=== PATIENT | female | born 1970 | race Caucasian/White ===

== ENCOUNTER 2017-06-19 12:04 | Inpatient (IN) ==
[2017-06-19] MEDS ORDERED: NICOTINE 21 MG/24 HR PATCH TRANSDERM PRN (12:08)
[2017-06-19] MEDS ORDERED: ACETAMINOPHEN 325 MG TABLET PO PRN (12:08)
[2017-06-19] MEDS ORDERED: DOCUSATE SODIUM 100 MG CAPSULE PO PRN (12:08)
[2017-06-19] MEDS ORDERED: ALBUTEROL/IPRATROPIUM 3 ML NEB RESP TX PRN (12:08)
[2017-06-19] MEDS ORDERED: BENZONATATE 100 MG CAPSULE PO PRN (12:12)
[2017-06-19 14:42] LABS: Basophils % 0.1 % (0.0-0.8); Hematocrit 42.7 VOL% (35.7-47.0); Hemoglobin 14.3 GM/DL (12.0-16.0); Immature Granulocytes % 0.3 %; Immature Granulocytes Absolute 0.02 #; Lymphocytes # 1.3 10*3/uL (1.4-4.0); Lymphocytes % 18.4 % (21.3-54.2); Mean Corpuscular HGB Conc 33.5 GM/DL (32-36); Mean Corpuscular Hemoglobin 30 PG (27-34); Mean Corpuscular Volume 88.6 FL (87-102); Mean Platelet Volume 8.7 FL (9.6-12.0); Monocytes # 0.1 10*3/uL (0.11-0.8); Monocytes % 1.1 % (1.7-12.7); Neutrophils # 5.6 10*3/uL (1.4-7.4); Neutrophils % 80.1 % (38.7-73.9); Platelet Count 316 T/CUMM (130-400); Red Blood Count 4.82 MC/CUMM (3.8-5.5); Red Cell Distribution Width 14.6 % (9.3-17.3)
[2017-06-19] MEDS: methylPREDNISolone SOD SUC 40 MG/1 ML VIAL IV SCH ×2 (14:56→23:37)
[2017-06-19] MEDS: ALBUTEROL/IPRATROPIUM 3 ML NEB RESP TX SCH ×2 (15:00→19:20)
[2017-06-19 15:02] LABS: Albumin 3.9 G/DL (3.4-5.0); Bilirubin,Total 0.7 MG/DL (0.2-1.0); Calcium 9.9 MG/DL (8.5-10.1); Free T4 (Free Thyroxine) 1.44 NG/DL (0.76-1.46); Osmolality,Calculated 280.7 MOS/KG (273-304); Potassium 4.2 MMOL/L (3.5-5.1); Total Protein 7.5 G/DL (6.4-8.3)
[2017-06-19 15:10] LABS: Magnesium 1.5 MG/DL (1.8-2.4); Thyroid Stimulating Hormone 1.09 uIU/ml (0.358-3.74)
[2017-06-19] MEDS ORDERED: DEXTROAMPHETAMINE PO PRN (15:26)
[2017-06-19] MEDS ORDERED: AMPHETAMINE PO PRN (15:26)
[2017-06-19] MEDS ORDERED: CETIRIZINE 10 MG TABLET PO PRN (15:26)
[2017-06-19] MEDS: LEVOFLOXACIN INJ 500 MG in PREMIX 1 EACH IV SCH (16:28)
[2017-06-19] MEDS: DORNASE ALFA 2.5 MG/2.5 ML VIAL RESP TX SCH (19:20)
[2017-06-19] MEDS: ALBUTEROL 0.4 MG/ML 30 ML/BOTTLE PO SCH ×2 (19:56→22:23)
[2017-06-19] MEDS ORDERED: BECLOMETHASONE 80 MCG/PUFF INHALER 8.7 GM INH SCH (21:00)
[2017-06-19] MEDS: PANTOPRAZOLE 40 MG TABLET PO SCH (22:15)
[2017-06-19] MEDS: MONTELUKAST 10 MG TABLET PO SCH (22:16)
[2017-06-20] MEDS: ALBUTEROL 0.4 MG/ML 30 ML/BOTTLE PO SCH ×3 (05:48→22:12)
[2017-06-20 06:51] LABS: Hematocrit 41.1 VOL% (35.7-47.0); Hemoglobin 13.8 GM/DL (12.0-16.0); Immature Granulocytes % 0.5 %; Immature Granulocytes Absolute 0.03 #; Lymphocytes # 1.3 10*3/uL (1.4-4.0); Lymphocytes % 22.9 % (21.3-54.2); Mean Corpuscular HGB Conc 33.6 GM/DL (32-36); Mean Corpuscular Hemoglobin 30 PG (27-34); Mean Platelet Volume 9.2 FL (9.6-12.0); Monocytes # 0.1 10*3/uL (0.11-0.8); Monocytes % 0.9 % (1.7-12.7); Neutrophils # 4.1 10*3/uL (1.4-7.4); Neutrophils % 75.7 % (38.7-73.9); Platelet Count 325 T/CUMM (130-400); Red Blood Count 4.67 MC/CUMM (3.8-5.5); Red Cell Distribution Width 14.7 % (9.3-17.3); White Blood Count 5.5 T/CUMM (4-12)
[2017-06-20] MEDS: ALBUTEROL/IPRATROPIUM 3 ML NEB RESP TX SCH ×4 (07:22→20:14)
[2017-06-20 07:25] LABS: Calcium 9.9 MG/DL (8.5-10.1); Osmolality,Calculated 284.7 MOS/KG (273-304); Potassium 4.2 MMOL/L (3.5-5.1)
[2017-06-20] MEDS: DORNASE ALFA 2.5 MG/2.5 ML VIAL RESP TX SCH ×2 (07:28→20:16)
[2017-06-20] MEDS: PANTOPRAZOLE 40 MG TABLET PO SCH ×2 (09:18→21:27)
[2017-06-20] MEDS: MONTELUKAST 10 MG TABLET PO SCH ×2 (09:18→21:27)
[2017-06-20 10:16] LABS: Apearance,Urine CLOUDY (Clear); Bacteria,Urine Occasional /HPF (Few); Bilirubin,Urine Negative (Negative); Blood, Urine Negative (Negative); Glucose,Urine (UA) 50 mg/dL (Negative); Ketones,Urine Negative (Negative); Mucus,Urine Occasional /LPF (Occasional); Nitrite,Urine Negative (Negative); Protein,Urine Negative; RBC,Urine 3 /HPF (0-4); Squamous Epithelial Cell,Urine Few /HPF (0-10); Urine Color Yellow (Yellow); Urine Specific Gravity 1.029 (1.001-1.035); Urine Urobilinogen < 2.0 EU/DL (0.2-1.0); WBC,Urine 3 /HPF (0-6)
[2017-06-20] MEDS: methylPREDNISolone SOD SUC 40 MG/1 ML VIAL IV SCH ×2 (12:30→23:58)
[2017-06-20] MEDS: MAGNESIUM CHLORIDE 64 MG TABLET PO SCH ×2 (12:35→21:27)
[2017-06-20] MEDS: LEVOFLOXACIN INJ 500 MG in PREMIX 1 EACH IV SCH (13:00)
[2017-06-20] MEDS: ALPRAZolam 0.5 MG TABLET PO PRN (23:58)
[2017-06-21] MEDS: ALBUTEROL 0.4 MG/ML 30 ML/BOTTLE PO SCH ×3 (05:50→23:52)
[2017-06-21 06:12] LABS: Basophils % 0.1 % (0.0-0.8); Hematocrit 40.8 VOL% (35.7-47.0); Hemoglobin 13.4 GM/DL (12.0-16.0); Immature Granulocytes % 0.7 %; Lymphocytes # 1.3 10*3/uL (1.4-4.0); Lymphocytes % 9.1 % (21.3-54.2); Mean Corpuscular HGB Conc 32.8 GM/DL (32-36); Mean Corpuscular Hemoglobin 29 PG (27-34); Mean Corpuscular Volume 88.3 FL (87-102); Monocytes # 0.3 10*3/uL (0.11-0.8); Monocytes % 1.9 % (1.7-12.7); Neutrophils # 12.4 10*3/uL (1.4-7.4); Neutrophils % 88.2 % (38.7-73.9); Platelet Count 328 T/CUMM (130-400); Red Blood Count 4.62 MC/CUMM (3.8-5.5); Red Cell Distribution Width 15.1 % (9.3-17.3)
[2017-06-21 06:34] LABS: Calcium 9.5 MG/DL (8.5-10.1); Osmolality,Calculated 286.3 MOS/KG (273-304); Potassium 4.4 MMOL/L (3.5-5.1)
[2017-06-21] MEDS: ALBUTEROL/IPRATROPIUM 3 ML NEB RESP TX SCH ×4 (07:15→20:15)
[2017-06-21] MEDS: DORNASE ALFA 2.5 MG/2.5 ML VIAL RESP TX SCH ×2 (07:15→20:15)
[2017-06-21] MEDS: MAGNESIUM CHLORIDE 64 MG TABLET PO SCH ×2 (09:39→20:17)
[2017-06-21] MEDS: NICOTINE 21 MG/24 HR PATCH TRANSDERM SCH (09:39)
[2017-06-21] MEDS: PANTOPRAZOLE 40 MG TABLET PO SCH ×2 (09:39→20:17)
[2017-06-21] MEDS: MONTELUKAST 10 MG TABLET PO SCH ×2 (09:39→20:17)
[2017-06-21] MEDS: methylPREDNISolone SOD SUC 40 MG/1 ML VIAL IV SCH ×2 (12:51→23:53)
[2017-06-21] MEDS: LEVOFLOXACIN INJ 500 MG in PREMIX 1 EACH IV SCH (14:06)
[2017-06-21 16:01] LABS: Procalcitonin, S 0.12 ng/mL (<=0.15)
[2017-06-21] MEDS: ALPRAZolam 0.5 MG TABLET PO PRN (22:58)
[2017-06-22] MEDS: ALBUTEROL 0.4 MG/ML 30 ML/BOTTLE PO SCH ×3 (06:10→22:12)
[2017-06-22 06:27] LABS: Basophils % 0.1 % (0.0-0.8); Hemoglobin 13.1 GM/DL (12.0-16.0); Immature Granulocytes % 1.3 %; Immature Granulocytes Absolute 0.12 #; Lymphocytes # 1.3 10*3/uL (1.4-4.0); Lymphocytes % 13.8 % (21.3-54.2); Mean Corpuscular HGB Conc 32.8 GM/DL (32-36); Mean Corpuscular Hemoglobin 29 PG (27-34); Mean Corpuscular Volume 89.3 FL (87-102); Mean Platelet Volume 8.9 FL (9.6-12.0); Monocytes # 0.2 10*3/uL (0.11-0.8); Monocytes % 2.6 % (1.7-12.7); Neutrophils # 7.5 10*3/uL (1.4-7.4); Neutrophils % 82.2 % (38.7-73.9); Platelet Count 303 T/CUMM (130-400); Red Blood Count 4.48 MC/CUMM (3.8-5.5); Red Cell Distribution Width 15.3 % (9.3-17.3); White Blood Count 9.1 T/CUMM (4-12)
[2017-06-22 07:01] LABS: Calcium 9.5 MG/DL (8.5-10.1); Osmolality,Calculated 280.5 MOS/KG (273-304); Potassium 4.6 MMOL/L (3.5-5.1)
[2017-06-22] MEDS: DORNASE ALFA 2.5 MG/2.5 ML VIAL RESP TX SCH ×2 (07:17→19:50)
[2017-06-22] MEDS: ALBUTEROL/IPRATROPIUM 3 ML NEB RESP TX SCH ×4 (07:21→19:50)
[2017-06-22] MEDS: PANTOPRAZOLE 40 MG TABLET PO SCH ×2 (08:55→22:13)
[2017-06-22] MEDS: MONTELUKAST 10 MG TABLET PO SCH ×2 (08:55→22:13)
[2017-06-22] MEDS: MAGNESIUM CHLORIDE 64 MG TABLET PO SCH ×2 (08:56→22:13)
[2017-06-22] MEDS: NICOTINE 21 MG/24 HR PATCH TRANSDERM SCH (08:56)
[2017-06-22] MEDS: methylPREDNISolone SOD SUC 40 MG/1 ML VIAL IV SCH ×2 (12:37→23:44)
[2017-06-22] MEDS: LEVOFLOXACIN INJ 500 MG in PREMIX 1 EACH IV SCH (14:39)
[2017-06-22] MEDS: ALPRAZolam 0.5 MG TABLET PO PRN (22:20)
[2017-06-23] MEDS: ALBUTEROL 0.4 MG/ML 30 ML/BOTTLE PO SCH (05:38)
[2017-06-23] MEDS: ALBUTEROL/IPRATROPIUM 3 ML NEB RESP TX SCH ×2 (07:29→11:08)
[2017-06-23] MEDS: DORNASE ALFA 2.5 MG/2.5 ML VIAL RESP TX SCH (07:37)
[2017-06-23] MEDS: MONTELUKAST 10 MG TABLET PO SCH (09:10)
[2017-06-23] MEDS: MAGNESIUM CHLORIDE 64 MG TABLET PO SCH (09:10)
[2017-06-23] MEDS: NICOTINE 21 MG/24 HR PATCH TRANSDERM SCH (09:10)
[2017-06-23] MEDS: PANTOPRAZOLE 40 MG TABLET PO SCH (09:10)
[2017-06-23 11:29] VITALS: BP 150/98
[2017-06-23] MEDS ORDERED: cefTAZidime 1,000 MG in SYRINGE 1 EACH IV SCH (14:00)
[2017-06-26] MEDS ORDERED: HUMIRA 40 MG SUBCUT SCH (09:00)
== END 2017-06-23 12:01 | disposition home or self-care (01) | DRG 202 ==
LOC: N.5E 12:50
PROVIDERS: ADMIT Internal Medicine Pulmonary Disease; ATTEND Internal Medicine Pulmonary Disease

== ENCOUNTER 2018-07-20 11:16 | Inpatient (IN) ==
[2018-07-20] MEDS ORDERED: ALBUTEROL/IPRATROPIUM 3 ML NEB RESP TX PRN (11:21)
[2018-07-20] MEDS ORDERED: INFLUENZA VIRUS VACCINE 0.5 ML SYRINGE IM ONE (14:09)
[2018-07-20] MEDS ORDERED: PNEUMOCOCCAL VACCINE (13 VALENT) 0.5 ML SYRINGE IM ONE (14:09)
[2018-07-20 14:56] LABS: Basophils % 0.2 % (0.0-0.8); Eosinophils % 0.3 % (0.00-10.9); Hematocrit 43.4 VOL% (35.7-47.0); Hemoglobin 13.5 GM/DL (12.0-16.0); Immature Granulocytes % 0.6 %; Immature Granulocytes Absolute 0.07 #; Lymphocytes % 8.7 % (21.3-54.2); Mean Corpuscular HGB Conc 31.1 GM/DL (32-36); Mean Corpuscular Hemoglobin 28 PG (27-34); Mean Platelet Volume 8.6 FL (9.6-12.0); Monocytes # 0.2 10*3/uL (0.11-0.8); Monocytes % 1.3 % (1.7-12.7); Neutrophils # 10.2 10*3/uL (1.4-7.4); Neutrophils % 88.9 % (38.7-73.9); Platelet Count 343 T/CUMM (130-400); Red Blood Count 4.77 MC/CUMM (3.8-5.5); Red Cell Distribution Width 15.6 % (9.3-17.3); White Blood Count 11.5 T/CUMM (4-12)
[2018-07-20 15:24] LABS: Alanine Aminotransferase 21 U/L (13-56); Albumin 3.6 G/DL (3.4-5.0); Alkaline Phosphatase 37 U/L (45-117); Aspartate Amino Transferase 11 U/L (0-37); Bilirubin,Total < 0.39 MG/DL (0.2-1.0); Blood Urea Nitrogen 13 MG/DL (7-18); Calcium 9.4 MG/DL (8.5-10.1); Glucose 153 MG/DL (74-106); Osmolality,Calculated 281.4 MOS/KG (273-304); Potassium 3.6 MMOL/L (3.5-5.1); Sodium 140 MMOL/L (136-145); Thyroid Stimulating Hormone 0.924 uIU/ml (0.358-3.74); Total Protein 7.4 G/DL (6.4-8.3)
[2018-07-20] MEDS: ALBUTEROL 0.4 MG/ML 30 ML/BOTTLE PO SCH (15:42)
[2018-07-20] MEDS: methylPREDNISolone SOD SUC 125 MG/2 ML VIAL IV SCH (15:42)
[2018-07-20] MEDS: cefTAZidime 1,000 MG in SYRINGE 1 EACH IV SCH (15:43)
[2018-07-20] MEDS: ALBUTEROL/IPRATROPIUM 3 ML NEB RESP TX SCH ×2 (16:48→19:48)
[2018-07-20 17:51] LABS: Apearance,Urine CLEAR (Clear); Bilirubin,Urine Negative (Negative); Blood, Urine Small mg/dL (Negative); Glucose,Urine (UA) Negative (Negative); Hyaline Casts,Urine 3 /LPF (0-3); Ketones,Urine Negative (Negative); Mucus,Urine Occasional /LPF (Occasional); Nitrite,Urine Negative (Negative); Protein,Urine Negative; RBC,Urine 4 /HPF (0-4); Squamous Epithelial Cell,Urine Occasional /HPF (0-10); Urine Color Yellow (Yellow); Urine Urobilinogen < 2.0 EU/DL (0.2-1.0); WBC,Urine <1 /HPF (0-6)
[2018-07-20] MEDS: GENTAMICIN INJ 400 MG in SODIUM CHLORIDE 0.9% 100 ML IV SCH (18:18)
[2018-07-20] MEDS: DORNASE ALFA 2.5 MG/2.5 ML VIAL RESP TX SCH (19:48)
[2018-07-20] MEDS: MONTELUKAST 10 MG TABLET PO SCH (20:30)
[2018-07-21] MEDS: ALBUTEROL 0.4 MG/ML 30 ML/BOTTLE PO SCH ×4 (00:32→22:02)
[2018-07-21] MEDS: cefTAZidime 1,000 MG in SYRINGE 1 EACH IV SCH ×3 (00:38→16:58)
[2018-07-21] MEDS: methylPREDNISolone SOD SUC 125 MG/2 ML VIAL IV SCH (04:49)
[2018-07-21 05:25] LABS: Hematocrit 40.8 VOL% (35.7-47.0); Hemoglobin 12.7 GM/DL (12.0-16.0); Immature Granulocytes % 1.6 %; Immature Granulocytes Absolute 0.12 #; Lymphocytes # 1.2 10*3/uL (1.4-4.0); Lymphocytes % 15.5 % (21.3-54.2); Mean Corpuscular HGB Conc 31.1 GM/DL (32-36); Mean Corpuscular Hemoglobin 28 PG (27-34); Mean Corpuscular Volume 89.5 FL (87-102); Mean Platelet Volume 8.4 FL (9.6-12.0); Monocytes # 0.3 10*3/uL (0.11-0.8); Monocytes % 4.1 % (1.7-12.7); Neutrophils # 6.1 10*3/uL (1.4-7.4); Neutrophils % 78.8 % (38.7-73.9); Platelet Count 346 T/CUMM (130-400); Red Blood Count 4.56 MC/CUMM (3.8-5.5); Red Cell Distribution Width 15.2 % (9.3-17.3); White Blood Count 7.7 T/CUMM (4-12)
[2018-07-21 05:54] LABS: Calcium 9.5 MG/DL (8.5-10.1); Osmolality,Calculated 277.8 MOS/KG (273-304); Potassium 3.9 MMOL/L (3.5-5.1)
[2018-07-21] MEDS: DORNASE ALFA 2.5 MG/2.5 ML VIAL RESP TX SCH ×2 (07:40→19:54)
[2018-07-21] MEDS: ALBUTEROL/IPRATROPIUM 3 ML NEB RESP TX SCH ×4 (07:40→19:54)
[2018-07-21] MEDS: MONTELUKAST 10 MG TABLET PO SCH ×2 (09:12→22:03)
[2018-07-21] MEDS ORDERED: ACETAMINOPHEN/diphenhydrAMINE 500-25 MG TABLET PO PRN (10:51)
[2018-07-21] MEDS: GENTAMICIN INJ 400 MG in SODIUM CHLORIDE 0.9% 100 ML IV SCH (16:59)
[2018-07-22] MEDS: cefTAZidime 1,000 MG in SYRINGE 1 EACH IV SCH ×3 (00:07→16:56)
[2018-07-22 04:26] LABS: Basophils % 0.2 % (0.0-0.8); Eosinophils % 0.1 % (0.00-10.9); Hematocrit 37.2 VOL% (35.7-47.0); Hemoglobin 11.7 GM/DL (12.0-16.0); Immature Granulocytes % 1.1 %; Immature Granulocytes Absolute 0.14 #; Lymphocytes # 3.9 10*3/uL (1.4-4.0); Lymphocytes % 30.3 % (21.3-54.2); Mean Corpuscular HGB Conc 31.5 GM/DL (32-36); Mean Corpuscular Hemoglobin 29 PG (27-34); Mean Corpuscular Volume 90.7 FL (87-102); Mean Platelet Volume 8.3 FL (9.6-12.0); Monocytes # 0.9 10*3/uL (0.11-0.8); Monocytes % 6.7 % (1.7-12.7); Neutrophils # 7.9 10*3/uL (1.4-7.4); Neutrophils % 61.6 % (38.7-73.9); Platelet Count 309 T/CUMM (130-400); Red Cell Distribution Width 15.6 % (9.3-17.3); White Blood Count 12.8 T/CUMM (4-12)
[2018-07-22 04:52] LABS: Calcium 8.8 MG/DL (8.5-10.1); Osmolality,Calculated 286.3 MOS/KG (273-304); Potassium 3.6 MMOL/L (3.5-5.1)
[2018-07-22] MEDS: ALBUTEROL 0.4 MG/ML 30 ML/BOTTLE PO SCH ×3 (05:50→21:11)
[2018-07-22] MEDS: ALBUTEROL/IPRATROPIUM 3 ML NEB RESP TX SCH ×4 (07:44→18:58)
[2018-07-22] MEDS: DORNASE ALFA 2.5 MG/2.5 ML VIAL RESP TX SCH ×2 (07:50→19:03)
[2018-07-22] MEDS: MONTELUKAST 10 MG TABLET PO SCH ×3 (07:53→21:12)
[2018-07-22] MEDS: methylPREDNISolone SOD SUC 40 MG/1 ML VIAL IV SCH (08:45)
[2018-07-22] MEDS: GENTAMICIN INJ 400 MG in SODIUM CHLORIDE 0.9% 100 ML IV SCH (17:33)
[2018-07-22] MEDS ORDERED: PROMETHAZINE INJ 25 MG in SODIUM CHLORIDE 0.9% 50 ML IV ONE (23:56)
[2018-07-23] MEDS: cefTAZidime 1,000 MG in SYRINGE 1 EACH IV SCH ×3 (00:15→17:13)
[2018-07-23 06:23] LABS: Basophils % 0.1 % (0.0-0.8); Eosinophils % 0.3 % (0.00-10.9); Hematocrit 36.2 VOL% (35.7-47.0); Hemoglobin 11.5 GM/DL (12.0-16.0); Immature Granulocytes % 0.9 %; Immature Granulocytes Absolute 0.09 #; Lymphocytes # 4.2 10*3/uL (1.4-4.0); Mean Corpuscular HGB Conc 31.8 GM/DL (32-36); Mean Corpuscular Hemoglobin 29 PG (27-34); Mean Corpuscular Volume 90.3 FL (87-102); Mean Platelet Volume 8.3 FL (9.6-12.0); Monocytes # 0.7 10*3/uL (0.11-0.8); Monocytes % 6.6 % (1.7-12.7); Neutrophils # 5.5 10*3/uL (1.4-7.4); Neutrophils % 52.1 % (38.7-73.9); Platelet Count 288 T/CUMM (130-400); Red Blood Count 4.01 MC/CUMM (3.8-5.5); Red Cell Distribution Width 15.4 % (9.3-17.3); White Blood Count 10.5 T/CUMM (4-12)
[2018-07-23] MEDS: ALBUTEROL 0.4 MG/ML 30 ML/BOTTLE PO SCH ×3 (06:31→22:35)
[2018-07-23 06:42] LABS: Calcium 8.5 MG/DL (8.5-10.1); Osmolality,Calculated 281.4 MOS/KG (273-304)
[2018-07-23] MEDS: DORNASE ALFA 2.5 MG/2.5 ML VIAL RESP TX SCH ×2 (08:08→19:44)
[2018-07-23] MEDS: ALBUTEROL/IPRATROPIUM 3 ML NEB RESP TX SCH ×4 (08:08→19:43)
[2018-07-23] MEDS: methylPREDNISolone SOD SUC 40 MG/1 ML VIAL IV SCH ×3 (09:28→18:29)
[2018-07-23] MEDS: MONTELUKAST 10 MG TABLET PO SCH ×2 (09:29→20:41)
[2018-07-23] MEDS ORDERED: NAPROXEN 500 MG TABLET PO PRN (10:20)
[2018-07-23] MEDS: MAGNESIUM CHLORIDE 64 MG TABLET PO SCH ×2 (10:35→20:41)
[2018-07-23] MEDS: PANTOPRAZOLE 40 MG TABLET PO SCH ×2 (10:35→20:42)
[2018-07-23] MEDS: FERROUS SULFATE 325 MG TABLET PO SCH (10:35)
[2018-07-23] MEDS: BECLOMETHASONE 80 MCG/PUFF INHALER 8.7 GM INH SCH ×2 (11:04→20:42)
[2018-07-23] MEDS: GENTAMICIN INJ 400 MG in SODIUM CHLORIDE 0.9% 100 ML IV SCH (17:18)
[2018-07-23] MEDS ORDERED: diphenhydrAMINE CAP 50 MG CAPSULE PO PRN (21:00)
[2018-07-23] MEDS ORDERED: ACETAMINOPHEN 500 MG TABLET PO PRN (21:00)
[2018-07-24] MEDS: cefTAZidime 1,000 MG in SYRINGE 1 EACH IV SCH ×3 (00:05→15:12)
[2018-07-24] MEDS: methylPREDNISolone SOD SUC 40 MG/1 ML VIAL IV SCH ×3 (03:41→22:00)
[2018-07-24] MEDS: ALBUTEROL 0.4 MG/ML 30 ML/BOTTLE PO SCH ×3 (06:02→21:25)
[2018-07-24] MEDS: ALBUTEROL/IPRATROPIUM 3 ML NEB RESP TX SCH ×4 (08:29→19:58)
[2018-07-24] MEDS: DORNASE ALFA 2.5 MG/2.5 ML VIAL RESP TX SCH ×2 (08:31→19:58)
[2018-07-24] MEDS: MONTELUKAST 10 MG TABLET PO SCH ×2 (08:44→21:26)
[2018-07-24] MEDS: PANTOPRAZOLE 40 MG TABLET PO SCH ×2 (08:44→21:51)
[2018-07-24] MEDS: MAGNESIUM CHLORIDE 64 MG TABLET PO SCH ×2 (08:44→21:26)
[2018-07-24] MEDS: FERROUS SULFATE 325 MG TABLET PO SCH (08:44)
[2018-07-24] MEDS: BECLOMETHASONE 80 MCG/PUFF INHALER 8.7 GM INH SCH ×2 (08:45→21:27)
[2018-07-24] MEDS ORDERED: THEOPHYLLINE ER 100 MG TABLET PO SCH (11:00)
[2018-07-24] MEDS: FLUCONAZOLE 100 MG TABLET PO SCH (11:18)
[2018-07-24] MEDS ORDERED: THEOPHYLLINE ER 200 MG TABLET PO SCH (17:00)
[2018-07-24] MEDS: THEOPHYLLINE ER 300 MG TABLET PO SCH (17:02)
[2018-07-24] MEDS: GENTAMICIN INJ 400 MG in SODIUM CHLORIDE 0.9% 100 ML IV SCH (17:03)
[2018-07-25] MEDS: cefTAZidime 1,000 MG in SYRINGE 1 EACH IV SCH ×3 (01:33→17:23)
[2018-07-25] MEDS: ALBUTEROL 0.4 MG/ML 30 ML/BOTTLE PO SCH ×2 (06:03→14:01)
[2018-07-25] MEDS: ALBUTEROL/IPRATROPIUM 3 ML NEB RESP TX SCH ×4 (08:10→19:40)
[2018-07-25] MEDS: DORNASE ALFA 2.5 MG/2.5 ML VIAL RESP TX SCH ×2 (08:10→19:40)
[2018-07-25] MEDS: FLUCONAZOLE 100 MG TABLET PO SCH (13:48)
[2018-07-25] MEDS: THEOPHYLLINE ER 300 MG TABLET PO SCH ×2 (13:49→17:19)
[2018-07-25] MEDS: PANTOPRAZOLE 40 MG TABLET PO SCH ×2 (13:50→20:39)
[2018-07-25] MEDS: MAGNESIUM CHLORIDE 64 MG TABLET PO SCH ×2 (13:50→20:39)
[2018-07-25] MEDS: MONTELUKAST 10 MG TABLET PO SCH ×2 (13:51→20:39)
[2018-07-25] MEDS: BECLOMETHASONE 80 MCG/PUFF INHALER 8.7 GM INH SCH (13:51)
[2018-07-25] MEDS: FERROUS SULFATE 325 MG TABLET PO SCH (13:52)
[2018-07-25] MEDS: methylPREDNISolone SOD SUC 40 MG/1 ML VIAL IV SCH ×2 (13:57→20:50)
[2018-07-25 16:00] LABS: Procalcitonin, S < 0.10 ng/mL (<=0.15)
[2018-07-25] MEDS: GENTAMICIN INJ 400 MG in SODIUM CHLORIDE 0.9% 100 ML IV SCH (17:19)
[2018-07-25] MEDS: METOCLOPRAMIDE 10 MG/2 ML VIAL IV SCH (17:20)
[2018-07-26] MEDS: BECLOMETHASONE 80 MCG/PUFF INHALER 8.7 GM INH SCH ×3 (00:13→21:00)
[2018-07-26] MEDS: ALBUTEROL 0.4 MG/ML 30 ML/BOTTLE PO SCH ×4 (00:13→21:12)
[2018-07-26] MEDS: cefTAZidime 1,000 MG in SYRINGE 1 EACH IV SCH ×3 (02:01→16:29)
[2018-07-26] MEDS: METOCLOPRAMIDE 10 MG/2 ML VIAL IV SCH ×2 (02:04→06:15)
[2018-07-26 06:31] LABS: Calcium 8.8 MG/DL (8.5-10.1); Osmolality,Calculated 281.7 MOS/KG (273-304); Potassium 4.4 MMOL/L (3.5-5.1)
[2018-07-26] MEDS: ALBUTEROL/IPRATROPIUM 3 ML NEB RESP TX SCH ×4 (07:23→19:02)
[2018-07-26] MEDS: DORNASE ALFA 2.5 MG/2.5 ML VIAL RESP TX SCH ×2 (07:23→19:02)
[2018-07-26] MEDS: FERROUS SULFATE 325 MG TABLET PO SCH (08:56)
[2018-07-26] MEDS: MONTELUKAST 10 MG TABLET PO SCH ×2 (08:56→20:58)
[2018-07-26] MEDS: PANTOPRAZOLE 40 MG TABLET PO SCH ×2 (08:56→20:58)
[2018-07-26] MEDS: THEOPHYLLINE ER 300 MG TABLET PO SCH ×2 (08:56→16:29)
[2018-07-26] MEDS: MAGNESIUM CHLORIDE 64 MG TABLET PO SCH ×2 (08:56→20:58)
[2018-07-26] MEDS: FLUCONAZOLE 100 MG TABLET PO SCH (09:02)
[2018-07-26] MEDS: methylPREDNISolone SOD SUC 40 MG/1 ML VIAL IV SCH ×2 (10:46→22:00)
[2018-07-26] MEDS: METOCLOPRAMIDE 10 MG/10 ML UDCUP PO SCH ×3 (11:57→20:57)
[2018-07-26] MEDS: GENTAMICIN INJ 400 MG in SODIUM CHLORIDE 0.9% 100 ML IV SCH (21:00)
[2018-07-27] MEDS: cefTAZidime 1,000 MG in SYRINGE 1 EACH IV SCH ×4 (00:26→23:37)
[2018-07-27 05:11] LABS: Calcium 8.6 MG/DL (8.5-10.1); Osmolality,Calculated 286.4 MOS/KG (273-304); Potassium 4.4 MMOL/L (3.5-5.1)
[2018-07-27] MEDS: ALBUTEROL 0.4 MG/ML 30 ML/BOTTLE PO SCH ×3 (06:36→21:47)
[2018-07-27] MEDS: DORNASE ALFA 2.5 MG/2.5 ML VIAL RESP TX SCH ×2 (08:11→20:32)
[2018-07-27] MEDS: ALBUTEROL/IPRATROPIUM 3 ML NEB RESP TX SCH ×4 (08:11→20:25)
[2018-07-27] MEDS: THEOPHYLLINE ER 300 MG TABLET PO SCH ×2 (08:25→15:59)
[2018-07-27] MEDS: MONTELUKAST 10 MG TABLET PO SCH ×2 (08:25→21:47)
[2018-07-27] MEDS: FERROUS SULFATE 325 MG TABLET PO SCH (08:26)
[2018-07-27] MEDS: FLUCONAZOLE 100 MG TABLET PO SCH (08:26)
[2018-07-27] MEDS: MAGNESIUM CHLORIDE 64 MG TABLET PO SCH ×2 (08:26→21:47)
[2018-07-27] MEDS: PANTOPRAZOLE 40 MG TABLET PO SCH ×2 (08:26→21:46)
[2018-07-27] MEDS: METOCLOPRAMIDE 10 MG/10 ML UDCUP PO SCH ×4 (08:36→21:47)
[2018-07-27] MEDS: BECLOMETHASONE 80 MCG/PUFF INHALER 8.7 GM INH SCH ×2 (08:50→21:46)
[2018-07-27] MEDS ORDERED: ERGOCALCIFEROL 50,000 UNIT CAPSULE PO SCH (09:00)
[2018-07-27] MEDS: methylPREDNISolone SOD SUC 40 MG/1 ML VIAL IV SCH ×2 (09:39→23:35)
[2018-07-27] MEDS ORDERED: EPINEPHrine 1 MG/ML VIAL SUBCUT PRN (12:59)
[2018-07-27] MEDS ORDERED: EPINEPHrine 1 MG/ML VIAL SUBCUT SCH (15:00)
[2018-07-27] MEDS: GENTAMICIN INJ 400 MG in SODIUM CHLORIDE 0.9% 100 ML IV SCH (18:20)
[2018-07-28 05:40] LABS: Calcium 8.9 MG/DL (8.5-10.1); Osmolality,Calculated 281.7 MOS/KG (273-304); Potassium 4.3 MMOL/L (3.5-5.1)
[2018-07-28] MEDS: ALBUTEROL 0.4 MG/ML 30 ML/BOTTLE PO SCH ×3 (06:02→21:12)
[2018-07-28] MEDS: DORNASE ALFA 2.5 MG/2.5 ML VIAL RESP TX SCH ×2 (08:07→19:00)
[2018-07-28] MEDS: ALBUTEROL/IPRATROPIUM 3 ML NEB RESP TX SCH ×4 (08:07→19:00)
[2018-07-28] MEDS: THEOPHYLLINE ER 300 MG TABLET PO SCH ×2 (08:08→16:23)
[2018-07-28] MEDS: METOCLOPRAMIDE 10 MG/10 ML UDCUP PO SCH ×4 (08:08→20:52)
[2018-07-28] MEDS: MONTELUKAST 10 MG TABLET PO SCH ×2 (08:09→20:52)
[2018-07-28] MEDS: FERROUS SULFATE 325 MG TABLET PO SCH (08:09)
[2018-07-28] MEDS: MAGNESIUM CHLORIDE 64 MG TABLET PO SCH ×2 (08:09→20:52)
[2018-07-28] MEDS: FLUCONAZOLE 100 MG TABLET PO SCH (08:09)
[2018-07-28] MEDS: cefTAZidime 1,000 MG in SYRINGE 1 EACH IV SCH ×2 (08:09→16:19)
[2018-07-28] MEDS: PANTOPRAZOLE 40 MG TABLET PO SCH ×2 (08:09→20:52)
[2018-07-28] MEDS: BECLOMETHASONE 80 MCG/PUFF INHALER 8.7 GM INH SCH ×2 (08:13→20:54)
[2018-07-28] MEDS: predniSONE 20 MG TABLET PO SCH (10:32)
[2018-07-28] MEDS: GENTAMICIN INJ 400 MG in SODIUM CHLORIDE 0.9% 100 ML IV SCH (17:42)
[2018-07-29] MEDS: cefTAZidime 1,000 MG in SYRINGE 1 EACH IV SCH ×4 (04:30→23:30)
[2018-07-29 05:37] LABS: Calcium 9.1 MG/DL (8.5-10.1); Osmolality,Calculated 279.5 MOS/KG (273-304); Potassium 3.6 MMOL/L (3.5-5.1)
[2018-07-29] MEDS: METOCLOPRAMIDE 10 MG/10 ML UDCUP PO SCH ×4 (06:42→20:56)
[2018-07-29] MEDS: ALBUTEROL 0.4 MG/ML 30 ML/BOTTLE PO SCH ×3 (06:42→21:00)
[2018-07-29] MEDS: predniSONE 20 MG TABLET PO SCH (08:06)
[2018-07-29] MEDS: PANTOPRAZOLE 40 MG TABLET PO SCH ×2 (08:06→20:56)
[2018-07-29] MEDS: FLUCONAZOLE 100 MG TABLET PO SCH (08:06)
[2018-07-29] MEDS: FERROUS SULFATE 325 MG TABLET PO SCH (08:07)
[2018-07-29] MEDS: THEOPHYLLINE ER 300 MG TABLET PO SCH ×2 (08:07→16:30)
[2018-07-29] MEDS: MONTELUKAST 10 MG TABLET PO SCH ×2 (08:07→20:57)
[2018-07-29] MEDS: MAGNESIUM CHLORIDE 64 MG TABLET PO SCH ×2 (08:07→20:57)
[2018-07-29] MEDS: BECLOMETHASONE 80 MCG/PUFF INHALER 8.7 GM INH SCH ×2 (08:09→20:57)
[2018-07-29] MEDS: ALBUTEROL/IPRATROPIUM 3 ML NEB RESP TX SCH ×4 (08:13→20:43)
[2018-07-29] MEDS: DORNASE ALFA 2.5 MG/2.5 ML VIAL RESP TX SCH ×2 (08:14→20:43)
[2018-07-29] MEDS: GENTAMICIN INJ 400 MG in SODIUM CHLORIDE 0.9% 100 ML IV SCH (17:25)
[2018-07-30] MEDS: ALBUTEROL 0.4 MG/ML 30 ML/BOTTLE PO SCH (05:10)
[2018-07-30 06:09] LABS: Calcium 9.1 MG/DL (8.5-10.1); Osmolality,Calculated 281.5 MOS/KG (273-304); Potassium 3.9 MMOL/L (3.5-5.1)
[2018-07-30] MEDS: ALBUTEROL/IPRATROPIUM 3 ML NEB RESP TX SCH (08:00)
[2018-07-30] MEDS: DORNASE ALFA 2.5 MG/2.5 ML VIAL RESP TX SCH (08:00)
[2018-07-30 08:19] VITALS: BP 120/79
[2018-07-30] MEDS: FERROUS SULFATE 325 MG TABLET PO SCH (09:20)
[2018-07-30] MEDS: PANTOPRAZOLE 40 MG TABLET PO SCH (09:20)
[2018-07-30] MEDS: MONTELUKAST 10 MG TABLET PO SCH (09:20)
[2018-07-30] MEDS: predniSONE 20 MG TABLET PO SCH (09:20)
[2018-07-30] MEDS: FLUCONAZOLE 100 MG TABLET PO SCH (09:20)
[2018-07-30] MEDS: THEOPHYLLINE ER 300 MG TABLET PO SCH (09:20)
[2018-07-30] MEDS: MAGNESIUM CHLORIDE 64 MG TABLET PO SCH (09:20)
[2018-07-30] MEDS: cefTAZidime 1,000 MG in SYRINGE 1 EACH IV SCH (09:21)
[2018-07-30] MEDS: METOCLOPRAMIDE 10 MG/10 ML UDCUP PO SCH (09:21)
[2018-07-30] MEDS: BECLOMETHASONE 80 MCG/PUFF INHALER 8.7 GM INH SCH (09:21)
== END 2018-07-30 12:14 | disposition home or self-care (01) | DRG 202 ==
LOC: N.5E 11:58
PROVIDERS: ADMIT Internal Medicine Pulmonary Disease; ATTEND Internal Medicine Pulmonary Disease

== ENCOUNTER 2019-06-28 12:41 | Inpatient (IN) ==
[2019-06-28] MEDS ORDERED: ALBUTEROL/IPRATROPIUM 3 ML NEB RESP TX PRN (14:06)
[2019-06-28] MEDS ORDERED: CLINDAMYCIN 600 MG/4 ML VIAL IM SCH (14:30)
[2019-06-28 14:32] LABS: Basophils # 0.1 10*3/uL (0.0-0.2); Basophils % 0.4 % (0.0-0.8); Hematocrit 49.1 VOL% (35.7-47.0); Hemoglobin 16.3 GM/DL (12.0-16.0); Immature Granulocytes % 3.8 %; Immature Granulocytes Absolute 0.49 #; Lymphocytes # 0.8 10*3/uL (1.4-4.0); Mean Corpuscular HGB Conc 33.2 GM/DL (32-36); Mean Corpuscular Volume 93.5 FL (87-102); Mean Platelet Volume 8.3 FL (9.6-12.0); Monocytes % 3.6 % (1.7-12.7); Neutrophils % 86.2 % (38.7-73.9); Platelet Count 302 T/CUMM (130-400); Red Blood Count 5.25 MC/CUMM (3.8-5.5); Red Cell Distribution Width 15.1 % (9.3-17.3); White Blood Count 12.9 T/CUMM (4-12)
[2019-06-28] MEDS: ALBUTEROL/IPRATROPIUM 3 ML NEB RESP TX SCH ×2 (15:03→20:21)
[2019-06-28 15:10] LABS: Alanine Aminotransferase 33 U/L (13-56); Albumin 3.8 G/DL (3.4-5.0); Alkaline Phosphatase 26 U/L (45-117); Aspartate Amino Transferase 20 U/L (0-37); Bilirubin,Total < 0.39 MG/DL (0.2-1.0); Blood Urea Nitrogen 20 MG/DL (7-18); Calcium 9.8 MG/DL (8.5-10.1); Estimated Glom Filtration Rate 73 ML/MIN; Glucose 122 MG/DL (74-106); Osmolality,Calculated 280.5 MOS/KG (273-304); Total Protein 7.2 G/DL (6.4-8.3)
[2019-06-28] MEDS ORDERED: ONDANSETRON 4 MG/2 ML VIAL IV PRN (15:18)
[2019-06-28] MEDS ORDERED: ACETAMINOPHEN 325 MG TABLET PO PRN (15:18)
[2019-06-28] MEDS ORDERED: ALBUTEROL 2.5 MG/3 ML NEB RESP TX PRN (15:19)
[2019-06-28] MEDS: CLINDAMYCIN INJ 600 MG in PREMIX 1 EACH IV SCH ×2 (15:21→21:19)
[2019-06-28] MEDS: methylPREDNISolone SOD SUC 40 MG/1 ML VIAL IV SCH ×2 (15:23→21:29)
[2019-06-28] MEDS: METOCLOPRAMIDE 10 MG/10 ML UDCUP PO SCH ×2 (16:02→21:21)
[2019-06-28] MEDS: THEOPHYLLINE ER 300 MG TABLET PO SCH (16:02)
[2019-06-28] MEDS: MONTELUKAST 10 MG TABLET PO SCH (21:20)
[2019-06-28] MEDS: BENZONATATE 100 MG CAPSULE PO SCH (21:21)
[2019-06-28] MEDS: MAGNESIUM CHLORIDE 64 MG TABLET PO SCH (21:21)
[2019-06-28] MEDS: FLUTICASONE 50 MCG NASAL SPRAY 16 GM BOTTLE BOTH NARES SCH (21:21)
[2019-06-28] MEDS: BECLOMETHASONE 80 MCG/PUFF INHALER 8.7 GM INH SCH (21:22)
[2019-06-29] MEDS: ALBUTEROL/IPRATROPIUM 3 ML NEB RESP TX SCH ×7 (00:18→23:15)
[2019-06-29] MEDS: CLINDAMYCIN INJ 600 MG in PREMIX 1 EACH IV SCH ×4 (03:13→21:28)
[2019-06-29 05:06] LABS: Basophils % 0.3 % (0.0-0.8); Hematocrit 44.3 VOL% (35.7-47.0); Hemoglobin 14.8 GM/DL (12.0-16.0); Immature Granulocytes % 4.1 %; Immature Granulocytes Absolute 0.42 #; Lymphocytes # 1.3 10*3/uL (1.4-4.0); Mean Corpuscular HGB Conc 33.4 GM/DL (32-36); Mean Corpuscular Volume 94.3 FL (87-102); Mean Platelet Volume 8.7 FL (9.6-12.0); Monocytes % 5.3 % (1.7-12.7); Neutrophils % 77.3 % (38.7-73.9); Platelet Count 284 T/CUMM (130-400); Red Cell Distribution Width 14.7 % (9.3-17.3); White Blood Count 10.2 T/CUMM (4-12)
[2019-06-29 05:43] LABS: Calcium 9.3 MG/DL (8.5-10.1); Osmolality,Calculated 284.4 MOS/KG (273-304)
[2019-06-29] MEDS: methylPREDNISolone SOD SUC 40 MG/1 ML VIAL IV SCH ×3 (06:24→21:30)
[2019-06-29 06:39] LABS: Amorphous Crystals,Urine Occasional /HPF (Few); Apearance,Urine CLOUDY (Clear); Bilirubin,Urine Negative (Negative); Blood, Urine Negative (Negative); Glucose,Urine (UA) 50 mg/dL (Negative); Ketones,Urine Negative (Negative); Mucus,Urine Occasional /LPF (Occasional); Nitrite,Urine Negative (Negative); Protein,Urine Negative; Squamous Epithelial Cell,Urine Occasional /HPF (0-10); Urine Color Yellow (Yellow); Urine Specific Gravity 1.019 (1.001-1.035); Urine Urobilinogen < 2.0 EU/DL (0.2-1.0)
[2019-06-29] MEDS: METOCLOPRAMIDE 10 MG/10 ML UDCUP PO SCH ×4 (10:02→21:29)
[2019-06-29] MEDS: FLUTICASONE 50 MCG NASAL SPRAY 16 GM BOTTLE BOTH NARES SCH ×2 (10:03→21:32)
[2019-06-29] MEDS: BECLOMETHASONE 80 MCG/PUFF INHALER 8.7 GM INH SCH (10:03)
[2019-06-29] MEDS: ENOXAPARIN 40 MG/0.4 ML SYRINGE SUBCUT SCH (10:04)
[2019-06-29] MEDS: NICOTINE 14 MG/24 HR PATCH TRANSDERM SCH (10:04)
[2019-06-29] MEDS: THEOPHYLLINE ER 300 MG TABLET PO SCH ×2 (10:05→16:22)
[2019-06-29] MEDS: MAGNESIUM CHLORIDE 64 MG TABLET PO SCH ×2 (10:05→21:35)
[2019-06-29] MEDS: PANTOPRAZOLE 40 MG TABLET PO SCH (10:05)
[2019-06-29] MEDS: FERROUS SULFATE 325 MG TABLET PO SCH (10:05)
[2019-06-29] MEDS: BENZONATATE 100 MG CAPSULE PO SCH ×3 (10:05→21:30)
[2019-06-29] MEDS: MONTELUKAST 10 MG TABLET PO SCH ×2 (10:05→21:30)
[2019-06-29] MEDS: LINACLOTIDE 145 MCG CAPSULE PO SCH (10:05)
[2019-06-29] MEDS ORDERED: MAGNESIUM SULF RIDER 4 GM in PREMIX 1 EACH IV PRN (12:48)
[2019-06-29] MEDS ORDERED: MAGNESIUM SULF RIDER 2 GM in PREMIX 1 EACH IV PRN (12:48)
[2019-06-30] MEDS: ALBUTEROL/IPRATROPIUM 3 ML NEB RESP TX SCH ×6 (02:53→23:38)
[2019-06-30] MEDS: CLINDAMYCIN INJ 600 MG in PREMIX 1 EACH IV SCH ×3 (03:54→18:02)
[2019-06-30 05:39] LABS: Basophils # 0.1 10*3/uL (0.0-0.2); Basophils % 0.6 % (0.0-0.8); Hematocrit 44.9 VOL% (35.7-47.0); Hemoglobin 14.4 GM/DL (12.0-16.0); Immature Granulocytes % 3.9 %; Immature Granulocytes Absolute 0.49 #; Lymphocytes # 1.1 10*3/uL (1.4-4.0); Lymphocytes % 8.9 % (21.3-54.2); Mean Corpuscular HGB Conc 32.1 GM/DL (32-36); Mean Corpuscular Volume 96.4 FL (87-102); Mean Platelet Volume 8.7 FL (9.6-12.0); Monocytes % 5.6 % (1.7-12.7); NRBC # 0.03 10*3/uL; Platelet Count 267 T/CUMM (130-400); Red Blood Count 4.66 MC/CUMM (3.8-5.5); Red Cell Distribution Width 14.9 % (9.3-17.3); White Blood Count 12.5 T/CUMM (4-12)
[2019-06-30] MEDS: methylPREDNISolone SOD SUC 40 MG/1 ML VIAL IV SCH ×2 (06:11→15:47)
[2019-06-30 06:25] LABS: Calcium 8.9 MG/DL (8.5-10.1); Osmolality,Calculated 279.7 MOS/KG (273-304)
[2019-06-30] MEDS: METOCLOPRAMIDE 10 MG/10 ML UDCUP PO SCH ×4 (08:49→20:44)
[2019-06-30] MEDS: BENZONATATE 100 MG CAPSULE PO SCH ×3 (08:50→20:44)
[2019-06-30] MEDS: MONTELUKAST 10 MG TABLET PO SCH ×2 (08:50→20:44)
[2019-06-30] MEDS: MAGNESIUM CHLORIDE 64 MG TABLET PO SCH ×2 (08:50→20:44)
[2019-06-30] MEDS: THEOPHYLLINE ER 300 MG TABLET PO SCH ×2 (08:50→18:01)
[2019-06-30] MEDS: FERROUS SULFATE 325 MG TABLET PO SCH (08:50)
[2019-06-30] MEDS: PANTOPRAZOLE 40 MG TABLET PO SCH (08:50)
[2019-06-30] MEDS: ENOXAPARIN 40 MG/0.4 ML SYRINGE SUBCUT SCH (08:50)
[2019-06-30] MEDS: NICOTINE 14 MG/24 HR PATCH TRANSDERM SCH (09:00)
[2019-06-30] MEDS: FLUTICASONE 50 MCG NASAL SPRAY 16 GM BOTTLE BOTH NARES SCH ×2 (09:00→20:49)
[2019-06-30] MEDS: LINACLOTIDE 145 MCG CAPSULE PO SCH (09:00)
[2019-06-30 15:10] LABS: Allen Test Positive; Pt O2 Delivery Device Room Air
[2019-06-30 15:11] LABS: ABG HCO3 25.1 MMOL/L (20-26); ABG PH 7.386 (7.35-7.45); ABG PO2 71.6 MM HG (80-95); ABG TCO2 22.3 MMOL/L (23-27)
[2019-06-30] MEDS: predniSONE 20 MG TABLET PO SCH (18:01)
[2019-06-30] MEDS: SODIUM CHLORIDE 3% 4 ML NEB RESP TX SCH (19:47)
[2019-06-30] MEDS: DOXYCYCLINE HYCLATE 100 MG CAPSULE PO SCH (20:44)
[2019-07-01] MEDS: ALBUTEROL/IPRATROPIUM 3 ML NEB RESP TX SCH ×6 (03:29→23:54)
[2019-07-01 06:02] LABS: Calcium 9.6 MG/DL (8.5-10.1); Osmolality,Calculated 287.4 MOS/KG (273-304)
[2019-07-01] MEDS: SODIUM CHLORIDE 3% 4 ML NEB RESP TX SCH ×2 (07:28→19:25)
[2019-07-01] MEDS: METOCLOPRAMIDE 10 MG/10 ML UDCUP PO SCH ×4 (08:27→21:20)
[2019-07-01] MEDS: ENOXAPARIN 40 MG/0.4 ML SYRINGE SUBCUT SCH (08:27)
[2019-07-01] MEDS: MONTELUKAST 10 MG TABLET PO SCH ×2 (08:28→21:20)
[2019-07-01] MEDS: FERROUS SULFATE 325 MG TABLET PO SCH (08:28)
[2019-07-01] MEDS: THEOPHYLLINE ER 300 MG TABLET PO SCH ×2 (08:28→16:14)
[2019-07-01] MEDS: predniSONE 20 MG TABLET PO SCH (08:28)
[2019-07-01] MEDS: MAGNESIUM CHLORIDE 64 MG TABLET PO SCH ×2 (08:29→21:20)
[2019-07-01] MEDS: FLUTICASONE 50 MCG NASAL SPRAY 16 GM BOTTLE BOTH NARES SCH ×2 (08:29→21:21)
[2019-07-01] MEDS: DOXYCYCLINE HYCLATE 100 MG CAPSULE PO SCH (08:29)
[2019-07-01] MEDS: LINACLOTIDE 145 MCG CAPSULE PO SCH (08:30)
[2019-07-01] MEDS: NICOTINE 14 MG/24 HR PATCH TRANSDERM SCH (08:30)
[2019-07-01] MEDS: BENZONATATE 100 MG CAPSULE PO SCH ×3 (08:31→21:20)
[2019-07-01] MEDS: PANTOPRAZOLE 40 MG TABLET PO SCH (08:31)
[2019-07-01] MEDS ORDERED: KETOROLAC 15 MG/1 ML VIAL IV ONE (11:01)
[2019-07-01] MEDS ORDERED: methylPREDNISolone SOD SUC 40 MG/1 ML VIAL IV ONE (12:07)
[2019-07-01] MEDS: LEVOFLOXACIN INJ 500 MG in PREMIX 1 EACH IV SCH (14:27)
[2019-07-01] MEDS: MEROPENEM 500 MG in SODIUM CHLORIDE 0.9% 100 ML IV SCH ×2 (18:49→23:10)
[2019-07-02] MEDS: ALBUTEROL/IPRATROPIUM 3 ML NEB RESP TX SCH ×5 (04:00→19:26)
[2019-07-02] MEDS: MEROPENEM 500 MG in SODIUM CHLORIDE 0.9% 100 ML IV SCH ×4 (05:50→23:27)
[2019-07-02] MEDS: methylPREDNISolone SOD SUC 40 MG/1 ML VIAL IV SCH ×2 (05:51→17:13)
[2019-07-02] MEDS: SODIUM CHLORIDE 3% 4 ML NEB RESP TX SCH ×2 (07:45→19:26)
[2019-07-02] MEDS: NICOTINE 14 MG/24 HR PATCH TRANSDERM SCH (09:30)
[2019-07-02] MEDS: METOCLOPRAMIDE 10 MG/10 ML UDCUP PO SCH ×4 (09:31→20:48)
[2019-07-02] MEDS: THEOPHYLLINE ER 300 MG TABLET PO SCH ×2 (09:31→17:13)
[2019-07-02] MEDS: MAGNESIUM CHLORIDE 64 MG TABLET PO SCH ×2 (09:31→20:48)
[2019-07-02] MEDS: MONTELUKAST 10 MG TABLET PO SCH ×2 (09:33→20:48)
[2019-07-02] MEDS: BENZONATATE 100 MG CAPSULE PO SCH ×3 (09:33→20:48)
[2019-07-02] MEDS: PANTOPRAZOLE 40 MG TABLET PO SCH (09:34)
[2019-07-02] MEDS: FERROUS SULFATE 325 MG TABLET PO SCH (09:35)
[2019-07-02] MEDS: ENOXAPARIN 40 MG/0.4 ML SYRINGE SUBCUT SCH (09:36)
[2019-07-02] MEDS: LINACLOTIDE 145 MCG CAPSULE PO SCH (09:37)
[2019-07-02] MEDS: FLUTICASONE 50 MCG NASAL SPRAY 16 GM BOTTLE BOTH NARES SCH ×2 (09:40→20:49)
[2019-07-02] MEDS: LEVOFLOXACIN INJ 500 MG in PREMIX 1 EACH IV SCH (14:16)
[2019-07-03] MEDS: ALBUTEROL/IPRATROPIUM 3 ML NEB RESP TX SCH ×7 (00:17→23:45)
[2019-07-03] MEDS: methylPREDNISolone SOD SUC 40 MG/1 ML VIAL IV SCH ×2 (05:37→17:35)
[2019-07-03] MEDS: MEROPENEM 500 MG in SODIUM CHLORIDE 0.9% 100 ML IV SCH ×4 (05:41→23:57)
[2019-07-03 06:22] LABS: Basophils # 0.1 10*3/uL (0.0-0.2); Basophils % 0.4 % (0.0-0.8); Hematocrit 44.6 VOL% (35.7-47.0); Hemoglobin 14.7 GM/DL (12.0-16.0); Immature Granulocytes % 4.2 %; Immature Granulocytes Absolute 0.53 #; Lymphocytes # 2.2 10*3/uL (1.4-4.0); Lymphocytes % 17.9 % (21.3-54.2); Mean Corpuscular Volume 93.7 FL (87-102); Mean Platelet Volume 8.3 FL (9.6-12.0); Monocytes % 7.9 % (1.7-12.7); NRBC # 0.02 10*3/uL; Neutrophils % 69.6 % (38.7-73.9); Platelet Count 243 T/CUMM (130-400); Red Blood Count 4.76 MC/CUMM (3.8-5.5); Red Cell Distribution Width 14.9 % (9.3-17.3); White Blood Count 12.5 T/CUMM (4-12)
[2019-07-03 06:28] LABS: INR 0.9; PT Patient Result 10.3 SECS (9.6-12.2); Partial Thromboplastin Time 22.2 SECS (20.8-36.0)
[2019-07-03 06:45] LABS: Hypochromasia 1+; Lymphocytes 13 % (20-55); Platelet Estimate Adequate; Segmented Neutrophils 83 % (50-85); Total Cells Counted 100
[2019-07-03] MEDS: SODIUM CHLORIDE 3% 4 ML NEB RESP TX SCH ×2 (07:31→19:30)
[2019-07-03] MEDS ORDERED: MEPERIDINE 50 MG/1 ML VIAL IM ONE (08:00)
[2019-07-03] MEDS ORDERED: diphenhydrAMINE 50 MG/1 ML VIAL IM ONE (08:00)
[2019-07-03] MEDS ORDERED: BENZONATATE 100 MG CAPSULE PO ONE (08:00)
[2019-07-03] MEDS ORDERED: MIDAZOLAM 2 MG/2 ML VIAL ONE (08:21)
[2019-07-03] MEDS ORDERED: LIDOCAINE 1% 20 ML VIAL MISC INJ ONE (08:30)
[2019-07-03] MEDS ORDERED: LIDOCAINE 2% VISCOUS 100 ML BOTTLE SWISH/SPIT ONE (08:30)
[2019-07-03] MEDS ORDERED: LIDOCAINE 2% 20 ML VIAL RESP TX ONE (08:30)
[2019-07-03] MEDS ORDERED: MIDAZOLAM 2 MG/2 ML VIAL IV ONE (09:00)
[2019-07-03] MEDS: METOCLOPRAMIDE 10 MG/10 ML UDCUP PO SCH ×4 (10:05→21:27)
[2019-07-03] MEDS: THEOPHYLLINE ER 300 MG TABLET PO SCH ×2 (10:06→17:36)
[2019-07-03] MEDS: BENZONATATE 100 MG CAPSULE PO SCH ×3 (10:06→21:27)
[2019-07-03] MEDS: ENOXAPARIN 40 MG/0.4 ML SYRINGE SUBCUT SCH (10:51)
[2019-07-03] MEDS: NICOTINE 14 MG/24 HR PATCH TRANSDERM SCH (10:51)
[2019-07-03] MEDS: FLUTICASONE 50 MCG NASAL SPRAY 16 GM BOTTLE BOTH NARES SCH ×2 (10:54→21:33)
[2019-07-03] MEDS: FERROUS SULFATE 325 MG TABLET PO SCH (12:22)
[2019-07-03] MEDS: LINACLOTIDE 145 MCG CAPSULE PO SCH (12:22)
[2019-07-03] MEDS: MAGNESIUM CHLORIDE 64 MG TABLET PO SCH ×2 (12:22→21:27)
[2019-07-03] MEDS: PANTOPRAZOLE 40 MG TABLET PO SCH (12:23)
[2019-07-03] MEDS: MONTELUKAST 10 MG TABLET PO SCH ×2 (12:23→21:27)
[2019-07-03] MEDS: LEVOFLOXACIN INJ 500 MG in PREMIX 1 EACH IV SCH (13:16)
[2019-07-04] MEDS: ALBUTEROL/IPRATROPIUM 3 ML NEB RESP TX SCH ×6 (03:12→23:31)
[2019-07-04] MEDS: MEROPENEM 500 MG in SODIUM CHLORIDE 0.9% 100 ML IV SCH ×2 (06:23→12:09)
[2019-07-04] MEDS: methylPREDNISolone SOD SUC 40 MG/1 ML VIAL IV SCH (06:23)
[2019-07-04] MEDS: SODIUM CHLORIDE 3% 4 ML NEB RESP TX SCH ×2 (07:03→19:59)
[2019-07-04] MEDS: METOCLOPRAMIDE 10 MG/10 ML UDCUP PO SCH ×5 (08:22→21:30)
[2019-07-04] MEDS: MAGNESIUM CHLORIDE 64 MG TABLET PO SCH ×2 (08:23→21:29)
[2019-07-04] MEDS: ENOXAPARIN 40 MG/0.4 ML SYRINGE SUBCUT SCH (08:23)
[2019-07-04] MEDS: THEOPHYLLINE ER 300 MG TABLET PO SCH ×2 (08:24→17:13)
[2019-07-04] MEDS: MONTELUKAST 10 MG TABLET PO SCH ×2 (08:24→21:30)
[2019-07-04] MEDS: NICOTINE 14 MG/24 HR PATCH TRANSDERM SCH (08:25)
[2019-07-04] MEDS: LINACLOTIDE 145 MCG CAPSULE PO SCH (08:26)
[2019-07-04] MEDS: FERROUS SULFATE 325 MG TABLET PO SCH (08:26)
[2019-07-04] MEDS: PANTOPRAZOLE 40 MG TABLET PO SCH (08:26)
[2019-07-04] MEDS: FLUTICASONE 50 MCG NASAL SPRAY 16 GM BOTTLE BOTH NARES SCH ×2 (08:26→21:31)
[2019-07-04] MEDS: BENZONATATE 100 MG CAPSULE PO SCH ×3 (08:33→21:29)
[2019-07-04] MEDS: LEVOFLOXACIN INJ 500 MG in PREMIX 1 EACH IV SCH (14:02)
[2019-07-04] MEDS ORDERED: INFLUENZA VIRUS VACCINE 0.5 ML SYRINGE IM ONE (15:01)
[2019-07-04] MEDS: SODIUM CHLORIDE 0.9% 1,000 ML IV SCH (15:11)
[2019-07-04] MEDS: predniSONE 20 MG TABLET PO SCH (21:30)
[2019-07-05] MEDS: ALBUTEROL/IPRATROPIUM 3 ML NEB RESP TX SCH ×3 (03:45→11:20)
[2019-07-05] MEDS: SODIUM CHLORIDE 0.9% 1,000 ML IV SCH (05:00)
[2019-07-05] MEDS: SODIUM CHLORIDE 3% 4 ML NEB RESP TX SCH (07:11)
[2019-07-05] MEDS ORDERED: ERGOCALCIFEROL 50,000 UNIT CAPSULE PO SCH (09:00)
[2019-07-05] MEDS: METOCLOPRAMIDE 10 MG/10 ML UDCUP PO SCH ×2 (09:06→11:32)
[2019-07-05] MEDS: LINACLOTIDE 145 MCG CAPSULE PO SCH (09:24)
[2019-07-05] MEDS: MONTELUKAST 10 MG TABLET PO SCH (09:25)
[2019-07-05] MEDS: MAGNESIUM CHLORIDE 64 MG TABLET PO SCH (09:25)
[2019-07-05] MEDS: THEOPHYLLINE ER 300 MG TABLET PO SCH (09:25)
[2019-07-05] MEDS: BENZONATATE 100 MG CAPSULE PO SCH (09:25)
[2019-07-05] MEDS: PANTOPRAZOLE 40 MG TABLET PO SCH (09:26)
[2019-07-05] MEDS: FERROUS SULFATE 325 MG TABLET PO SCH (09:26)
[2019-07-05] MEDS: predniSONE 20 MG TABLET PO SCH (09:26)
[2019-07-05] MEDS: NICOTINE 14 MG/24 HR PATCH TRANSDERM SCH (09:27)
[2019-07-05] MEDS: FLUTICASONE 50 MCG NASAL SPRAY 16 GM BOTTLE BOTH NARES SCH (09:28)
[2019-07-05] MEDS: ENOXAPARIN 40 MG/0.4 ML SYRINGE SUBCUT SCH (09:56)
[2019-07-05] MEDS ORDERED: FLUCONAZOLE 200 MG TABLET PO SCH (11:00)
[2019-07-05 12:00] VITALS: BP 150/80
== END 2019-07-05 13:58 | disposition home or self-care (01) | DRG 177 ==
LOC: N.5E → SUATTDRO 13:09
PROVIDERS: ADMIT Internal Medicine; ATTEND Emergency Medicine